=== PATIENT | male | born 1955 | race Hispanic/Latino ===

== ENCOUNTER 2018-02-12 14:47 | Outpatient (CLI) | payer BC ==
[2018-02-12 15:37] LABS: Estimated GFR-MDRD - POC Greater than 90
--- NOTE | 2018-02-12 16:40 | MRI ---
MRI BRAIN AND INTERNAL AUDITORY CANALS WITH AND WITHOUT CONTRAST: 02/12/18 HISTORY: 62-year-old male with "tinnitus, bilateral, H93.13; and sensorineural hearing loss, bilateral, H90.3. " TECHNIQUE: Multiple sequences obtained in axial, sagittal, and coronal planes; both whole brain images and thin slices through the IAC's, pre and post IV injection of gadolinium-based contrast agent: 18 mL of Mult ihance. FINDINGS: The ventricles are normal in size and configuration. There is no major intraaxial signal abnormality , restricted diffusion, abnormal intraaxial enhancement, mass, midline shift or any other mass effect , recent intraaxial hemorrhage, or extraaxial fluid collection. There is no abnormal enhancement, mass, or morphologic abnormality, involving the cerebellopontine an gles, 7th-8th nerve complexes, internal auditory canals, cochleae, vestibules, vestibular aqueducts, or semicircular canals. There is a single small T2 hyperintense focus in the left frontal deep cerebral white matter consiste nt with a small focus of chronic ischemic white matter change. Incidentally, the left vertebral arter y is dominant, and its intracranial portion is tortuous, chronically indenting the right side of the payal and mildly indenting the left side of the medulla. IMPRESSION: Essentially normal. jnr POS: BEN
== END 2018-02-12 14:48 | disposition home or self-care (01) ==
LOC: SCSMRI 14:47
PROVIDERS: ATTEND Otolaryngology Plastic Surgery within the Head & Neck
DX: H93.13 Tinnitus, bilateral (principal); H90.3 Sensorineural hearing loss, bilateral
CPT/HCPCS: 70553; 82565

== ENCOUNTER 2018-03-14 06:09 | Day surgery (SDC) | payer BC ==
[2018-03-13 14:30] VITALS: BMI 24.3
--- NOTE | 2018-03-14 08:19 | OP ---
DATE OF PROCEDURE: 03/14/2018 SURGEON: Yogesh Traore M.D. OPERATIVE PROCEDURE: Colonoscopy. PREOPERATIVE DIAGNOSIS: This is a 62-year-old male undergoing colonoscopy for colon c ancer screening. POSTOPERATIVE DIAGNOSES: 1. Large hemorrhoids. 2. Otherwise, the exam is normal. PROCEDURE IN DETAIL: The patient was placed on his left lateral position and was given sedation by A nesthesia Department. A rectal exam was performed before the scope was advanced into the rectum. Th e patient noted to have a skin tag and hemorrhoids. No other lesions felt. A [employer] video colonosco pe was introduced into the rectum and advanced all the way into the cecum. The prep was good. The m ucosa appeared normal. The appendical orifice, ileocecal valve, cecum, no pathology seen. Withdrawa l from cecum, ascending colon, hepatic flexure, no pathology seen. The transverse colon, splenic fle xure, descending colon, and sigmoid colon, no pathology seen. Retroflexion of scope in the rectum sh owed hemorrhoids. DISCHARGE PLANNING: A 62-year-old male who comes for colonoscopy for colon cancer screening. The co lonoscopy was negative. DISCHARGE RECOMMENDATIONS: 1. The patient advised to call me if he develops abdominal pain, hematochezia. 2. High-fiber diet. 3. Repeat colonoscopy in 10 years.
[2018-03-14] MEDS ORDERED: PROPOFOL 200 MG/20 ML VIAL ONE (15:13)
[2018-03-14] MEDS ORDERED: ePHEDrine/0.9% NaCl/PF SYRINGE 50 mg/10 ml ONE (15:13)
== END 2018-03-14 08:33 | disposition home or self-care (01) ==
LOC: SDC 06:09
PROVIDERS: ATTEND Internal Medicine Gastroenterology
PROC: 0DJD8ZZ Inspection of Lower Intestinal Tract, Via Natural or Artificial Opening Endoscopic (ICD-10-PCS; principal; 2018-03-14)
DX: Z12.11 Encounter for screening for malignant neoplasm of colon (principal); K64.9 Unspecified hemorrhoids; K64.4 Residual hemorrhoidal skin tags
CPT/HCPCS: J2704

== ENCOUNTER 2022-06-06 16:35 | Outpatient (CLI) | payer BC | END 2022-06-06 16:36 | disposition home or self-care (01) | LOC: SCSRAD 16:35 | PROVIDERS: ATTEND Family Medicine | DX: M25.512 Pain in left shoulder (principal); M25.522 Pain in left elbow; M25.812 Other specified joint disorders, left shoulder ==